=== PATIENT | male | born 1950 ===

== ENCOUNTER 2022-04-09 16:35 | Emergency (ER) | payer SELFPAY ==
[2022-04-09] MEDS ORDERED: Oxymetazoline 0.05% Nasal Spray 30 ML Bottle NAS ONE (17:15)
[2022-04-09] MEDS ORDERED: Lidocaine 2% with EPINEPHrine 1:200,000 20 ML SDV INJECT ONE (17:15)
== END 2022-04-09 18:32 | disposition home or self-care (01) ==
LOC: DL.ED 16:35
DX: R04.0 Epistaxis (principal); Z88.2 Allergy status to sulfonamides; Z79.899 Other long term (current) drug therapy; Z79.82 Long term (current) use of aspirin; Z79.01 Long term (current) use of anticoagulants
CPT/HCPCS: 30901; 99283; A9270-GY